=== PATIENT | male | born 1980 | race Caucasian/White ===

== ENCOUNTER 2016-10-10 20:11 | Emergency (ER) | payer SELFPAY ==
[2016-10-10] MEDS ORDERED: [UNRECOGNIZED DRUG - OTHER] PO (20:25)
[2016-10-10] MEDS ORDERED: SUPER ANTIOXID1 EACH PO (20:25)
[2016-10-10 21:22] LABS: URINE BILIRUBIN NEGATIVE (NEG); URINE BLOOD NEGATIVE (NEG); URINE GLUCOSE (UA) NEGATIVE (NEG); URINE KETONE NEGATIVE (NEG); URINE LEUKOCYTE ESTERASE NEGATIVE (NEG); URINE NITRITE NEGATIVE (NEG); URINE PROTEIN NEGATIVE (NEG); URINE SPECIFIC GRAVITY 1.015 (1.003-1.030)
[2016-10-10 21:25] LABS: URINE APPEARANCE CLEAR; URINE COLOR YELLOW
[2016-10-10 21:46] LABS: ALB/GLOB RATIO 1.3 (0.8-2.0); ALBUMIN 4.3 g/dl (3.5-5.0); ALKALINE PHOSPHATASE 83 U/L (33-138); ALT/SGPT 20 U/L (12-78); ANION GAP 10 mmol/L (0-20); AST/SGOT 13 U/L (10-40); BILIRUBIN,TOTAL 0.4 mg/dl (0.0-1.5); BLOOD UREA NITROGEN 10 mg/dl (6-24); CALCIUM 8.8 mg/dl (8.5-10.5); CARBON DIOXIDE-VENOUS 29 mmol/L (22-32); CHLORIDE 107 mmol/l (96-110); CREATININE 0.93 mg/dl (0.60-1.30); GLUCOSE 108 mg/dL (70-110); POTASSIUM 3.8 mmol/L (3.7-5.1); SODIUM 142 mmol/L (135-145); eGFR VALUE FOR BLACK >90 mL/Min
== END 2016-10-10 22:57 ==
LOC: EDMED 20:11
PROVIDERS: Family Medicine
DX: F41.0 Panic disorder [episodic paroxysmal anxiety] (principal); Z87.891 Personal history of nicotine dependence